=== PATIENT | female | born 1985 | race Caucasian/White ===

== ENCOUNTER 2018-06-25 14:48 | Emergency (ER) | payer OTHER, MEDICAID, SELFPAY ==
--- NOTE | 2018-06-25 14:58 | ED_ITS ---
HPI - Headache <TIARA Hollis - Last Filed: 06/25/18 22:31> General Chief Complaint: Headache Stated Complaint: MIGRAINE, STIFF NECK, NAUSEA, VOMITING, DIZZY Time Seen by Provider: 06/25/18 14:58 Source: patient Mode of arrival: ambulatory Limitations: no limitations History of Present Illness HPI Narrative: 32-year-old female here for complaint of having headache for the last 6 days. Blood headache is to bilateral temporal areas and into left eye and radiating into left neck. She denies any trauma to her head or neck. She states that the headache started while she was having an orgasm. Headache has not resolved at all. She reports worsening headache with activity. No fevers no chills. No nausea or vomiting. She is able to ambulate into the emergency room. She reports that the headache is help when she is relaxing. She denies any neuro deficits. MD Complaint: headache Onset (ago): day(s) Related Data Home Medications Medication Instructions Recorded Confirmed albuterol sulfate [Ventolin HFA] 2 puff INH Q6H PRN #0 10/09/17 escitalopram oxalate [Lexapro] 10 mg PO QDAY #0 10/09/17 Previous Rx's Medication Instructions Recorded cyclobenzaprine 10 mg PO Q8HP PRN #20 tab 10/09/17 prednisone 40 mg PO QDAY #8 tab 10/09/17 cyclobenzaprine 10 mg PO TID PRN #12 tab 06/25/18 Allergies Allergy/AdvReac Type Severity Reaction Status Date / Time amoxicillin [AMOXICILLIN] Allergy Unknown Unverified 03/09/18 12:48 Review of Systems <TIARA Hollis - Last Filed: 06/25/18 22:31> Constitutional Reports headache(s) Eyes Denies change in vision, Denies eye discharge, Denies irritation and Denies loss of vision ENT Ears, Nose, Mouth, and Throat: Reports headache(s) Cardiovascular Denies chest pain, Denies irregular heart rhythm, Denies lightheadedness, Denies palpitations, Denies dyspnea, Denies dyspnea on exertion and Denies orthopnea Respiratory Denies cough, Denies dyspnea, Denies dyspnea on exertion and Denies wheezing Gastrointestinal Gastrointestinal: Denies abdominal pain, Denies change in bowel habits, Denies diarrhea, Denies nausea and Denies vomiting Genitourinary Denies hematuria, Denies flank pain, Denies urinary incontinence and Denies urinary urgency Musculoskeletal Denies back pain, Denies muscle weakness, Denies numbness and Denies tingling Integumentary/Breasts Denies pruritus, Denies erythema, Denies rash and Denies wounds Neurologic Denies confusion, Reports headache(s), Denies loss of vision, Denies numbness and Denies tingling Psychiatric Denies anxiety, Denies confusion, Denies depression, Denies homicidal ideation and Denies suicidal ideation Endocrine Denies palpitations Hematologic/Lymphatic Denies easy bruising Allergic/Immunologic Denies wheezing Exam <TIARA Hollis - Last Filed: 06/25/18 22:31> Initial Vital Signs Initial Vital Signs: Vital Signs Temperature 98.1 F 06/25/18 15:05 Pulse Rate 81 06/25/18 15:05 Respiratory Rate 16 06/25/18 15:05 Blood Pressure 130/77 H 06/25/18 15:05 Pulse Oximetry 100 06/25/18 15:05 Const General: cooperative and well developed Nutritional Appearance: well nourished Orientation: alert, awake, oriented x3 and not confused HENMA Mouth: oral mucosae normal and moist mucous membranes Eyes Conjunctivae: conjunctivae normal Sclera: sclerae normal Pupils: PERRL EOM: EOM intact bilaterally and No nystagmus Neck Neck: normal visual inspection, full ROM, trachea midline, supple, No lymphadenopathy, No midline deformity and No JVD Lymphatic: No lymphedema Chest Chest: normal inspection of the chest Resp Effort & Inspection: normal respiratory effort, able to speak in complete sentences, no respiratory distress and no use of accessory muscles Auscultation: clear to auscultation bilaterally, no rales, no rhonchi and no wheezes Cardio Rate: regular rate Rhythm: regular rhythm Heart Sounds: no click, no gallops, no murmurs and no rubs Skin General: no rashes or lesions noted, No jaundice and No petechiae Neuro General: alert, awake, oriented x3, gait normal and no focal motor deficits Cranial Nerves: PERRL, EOM intact bilaterally, facial strength normal, tongue midline, able to rotate head bilaterally, able to elevate shoulders bilaterally and No nystagmus Cognition: normal cognition Speech: speech normal Gait: normal gait Motor: muscle tone normal throughout Sensory Exam: no sensory deficits noted <DO Reji Waters Last Filed: 06/26/18 07:30> Initial Vital Signs Initial Vital Signs: Vital Signs Temperature 98.1 F 06/25/18 15:05 Pulse Rate 81 06/25/18 15:05 Respiratory Rate 16 06/25/18 15:05 Blood Pressure 130/77 H 06/25/18 15:05 Pulse Oximetry 100 06/25/18 15:05 Course <TIARA Hollis - Last Filed: 06/25/18 22:31> Orders Ordered: ED Orders 06/25/18 15:47 CT angio head and neck Stat 06/25/18 16:00 Complete Blood Count AUTO DIFF Stat Comprehensive Metabolic Panel Stat Vital Signs - 8 hr 06/25/18 15:05 06/25/18 16:43 06/25/18 17:52 Temperature 98.1 F Pulse Rate 81 56 L 61 Respiratory Rate 16 16 16 Blood Pressure 130/77 H Blood Pressure [Left Arm] 125/78 H 131/70 H Pulse Oximetry 100 100 100 <DO Reji Waters Last Filed: 06/26/18 07:30> Orders Ordered: ED Orders 06/25/18 15:47 CT angio head and neck Stat 06/25/18 16:00 Complete Blood Count AUTO DIFF Stat Comprehensive Metabolic Panel Stat Vital Signs - 8 hr 06/25/18 15:05 06/25/18 16:43 06/25/18 17:52 Temperature 98.1 F Pulse Rate 81 56 L 61 Respiratory Rate 16 16 16 Blood Pressure 130/77 H Blood Pressure [Left Arm] 125/78 H 131/70 H Pulse Oximetry 100 100 100 MDM - Headache <TIARA Hollis - Last Filed: 06/25/18 22:31> Lab Data Result diagrams: 06/25/18 16:00 06/25/18 16:00 Lab Results 06/25/18 06/25/18 Range/Units 16:00 16:00 WBC 13.8 H (4.5-11.0) X10^3/uL RBC 4.91 (4.0-5.2) X10^6/uL Hgb 15.1 (12.0-16.0) g/dL Hct 42.7 (36-46) % MCV 86.9 (80-100) fL MCH 30.8 (26-34) PG MCHC 35.4 (30-36) % RDW 13.9 (11.6-14.8) % Plt Count 230 (150-400) X10^3/uL Neut % (Auto) 75.6 H (50-75) % Lymph % (Auto) 16.9 L (25-40) % [place] % (Auto) 5.1 (3-14) % Eos % (Auto) 1.8 L (2-4) % Baso % (Auto) 0.6 (0-2) % Neut # (Auto) 91781 H (1763-3487) /uL Sodium 141 (137-145) mmol/L Potassium 3.9 (3.4-5.1) mmol/L Chloride 105 (98-107) mmol/L Carbon Dioxide 24 (22-32) mmol/L BUN 12 (7-17) mg/dL Creatinine 0.60 (0.52-1.04) mg/dL Estimated GFR > 60.0 (>60) mL/min BUN/Creatinine Ratio 20.0 (6-22) Glucose 92 (70-100) mg/dL Calcium 9.1 (8.4-10.2) mg/dL Total Bilirubin 0.6 (0.2-1.3) mg/dL AST 20 (14-36) IU/L ALT 22 (9-52) IU/L Alkaline Phosphatase 53 (38-126) U/L Total Protein 7.3 (6.3-8.2) g/dL Albumin 4.5 (3.5-5.0) g/dL Globulin 2.8 (1.7-4.1) g/dL Albumin/Globulin Ratio 1.6 (1.0-2.8) Imaging Data CT scan - head: Radiologist's impression: PROCEDURE: CT ANGIO HEAD AND NECK INDICATIONS: headache and left neck pain x 1 week TECHNIQUE: Pre-contrast 4.5 mm thick sections acquired from the foramen magnum to the vertex. After the administration of intravenous contrast, 1 mm thick sections acquired from the aortic arch through the [place]. Post-contrast 4.5 mm thick sections then re- acquired from the foramen magnum to the vertex. 3-dimensional maximum-intensity- projection (MIP) and/or volume rendering reformats were acquired of the central intracranial vasculature and neck separately. COMPARISON: None. FINDINGS: Image quality: Excellent. BRAIN: CSF spaces: Ventricles are normal in size and shape. Basal cisterns are patent. No extra-axial fluid collections. Brain: No midline shift. No intracranial bleeds or masses. Schaffer-white matter interface appears intact. Skull and face: Calvarium and facial bones appear intact, without suspicious lesions. Orbits appear normal. Sinuses: Sinuses and mastoids are clear. HEAD CT ANGIOGRAPHY: Anterior circulation: Intracranial internal carotid arteries are normal in size and flow. The flow within the paired anterior cerebral arteries is normal and symmetric. The flow within the middle cerebral arteries is normal and symmetric. The anterior communicating artery is seen. No aneurysms are seen. Posterior circulation: Visualized portions of the vertebral arteries demonstrate normal caliber, and join to form a normal appearing basilar artery. Flow within the posterior cerebral arteries is normal and symmetric. No aneurysms are seen. NECK CT ANGIOGRAPHY: Carotid system: The great vessels demonstrate a conventional anatomy as they arise from the aortic arch. The origins of the common carotid arteries appear patent. The common carotid arteries demonstrate normal caliber and courses. The bifurcation regions are both widely patent. The internal carotid arteries demonstrate normal calibers and courses. Posterior circulation: The origins of the vertebral arteries both appear widely patent. The more superior extracranial portions of both vertebral arteries also demonstrate normal courses and calibers. They join to form a normal appearing basilar artery. Soft tissues: Visualized neck soft tissues demonstrate no suspicious abnormalities. Bones: No suspicious bony lesions. Visualized cervical spine appears normally aligned. IMPRESSION: 1. No acute intracranial findings. 2. No arterial stenosis, occlusion, or aneurysm of the head and neck. Any quantitative measurements of stenosis were performed using NASCET criteria. Dictated by: Meron Flores M.D. on 06/25/2018 at 16:56 Approved by: Meron Flores M.D. on 06/25/2018 at 17:00 [facility] Narrative Medical decision making narrative: CBC shows slightly elevated white count otherwise unremarkable. Chem panel was unremarkable. Healthy exam today patient with full range of motion of the neck. Vital signs are stable. CTA of head neck was obtained and was negative for any acute findings. According to up-to- date coital headache fits the symptoms that she has except that it has lasted for the last 6 days which is atypical for this type of headache. Differential of tension headache. Will treat for tension headache with cyclobenzaprine and [id number] Tylenol and Motrin. Follow up with primary care provider later this week for re-evaluation. For any worsening symptoms return to the emergency room. <Philippe Londono DO - Last Filed: 06/26/18 07:30> Lab Data Lab Results 06/25/18 06/25/18 Range/Units 16:00 16:00 WBC 13.8 H (4.5-11.0) X10^3/uL RBC 4.91 (4.0-5.2) X10^6/uL Hgb 15.1 (12.0-16.0) g/dL Hct 42.7 (36-46) % MCV 86.9 (80-100) fL MCH 30.8 (26-34) PG MCHC 35.4 (30-36) % RDW 13.9 (11.6-14.8) % Plt Count 230 (150-400) X10^3/uL Neut % (Auto) 75.6 H (50-75) % Lymph % (Auto) 16.9 L (25-40) % [place] % (Auto) 5.1 (3-14) % Eos % (Auto) 1.8 L (2-4) % Baso % (Auto) 0.6 (0-2) % Neut # (Auto) 45711 H (0182-7236) /uL Sodium 141 (137-145) mmol/L Potassium 3.9 (3.4-5.1) mmol/L Chloride 105 (98-107) mmol/L Carbon Dioxide 24 (22-32) mmol/L BUN 12 (7-17) mg/dL Creatinine 0.60 (0.52-1.04) mg/dL Estimated GFR > 60.0 (>60) mL/min BUN/Creatinine Ratio 20.0 (6-22) Glucose 92 (70-100) mg/dL Calcium 9.1 (8.4-10.2) mg/dL Total Bilirubin 0.6 (0.2-1.3) mg/dL AST 20 (14-36) IU/L ALT 22 (9-52) IU/L Alkaline Phosphatase 53 (38-126) U/L Total Protein 7.3 (6.3-8.2) g/dL Albumin 4.5 (3.5-5.0) g/dL Globulin 2.8 (1.7-4.1) g/dL Albumin/Globulin Ratio 1.6 (1.0-2.8) Discharge Plan Departure Patient Disposition: Home, Self-Care Clinical Impression: Headache Discharge Date/Time: 06/25/18 18:11 Interventions: ED Discharge Assessment Last Done: 06/25/18 18:10 Instructions: Tension Headache, DI for Headache Activity Restrictions/Additional Instructions: Laboratory work shows slightly elevated white count otherwise was normal. CT of the head and neck was obtained was negative for any acute findings. Will treat for tension headache with [id number] Tylenol and Motrin as needed for any discomfort. Cyclobenzaprine is prescribed to help with any muscle tension. Follow up with her primary care provider next week for re-evaluation. For any worsening symptoms return to the emergency room. Prescriptions: New cyclobenzaprine 10 mg tablet 10 mg PO TID PRN (Reason: muscle spasm) Qty: 12 RF: 0 No Action escitalopram oxalate [Lexapro] 10 MG tablet 10 mg PO QDAY Qty: 0 RF: 0 albuterol sulfate [Ventolin HFA] 90 MCG/PUFF HFA aerosol inhaler 2 puff INH Q6H PRNQty: 0 RF: 0 cyclobenzaprine 10 MG tablet 10 mg PO Q8HP PRNQty: 20 RF: 0 prednisone 20 MG tablet 40 mg PO QDAY Qty: 8 RF: 0 Referrals: Philippe Wu MD [Primary Care Provider] - <Philippe Londono DO - Last Filed: 06/26/18 07:30> Cosign ED Attending Reed Attestation: I was available for consultation during this patient's emergency department encounter
[2018-06-25 15:05] VITALS: BP 130/77; PULSE 81; RESP 16; TEMP 36.7; O2SAT 100
--- NOTE | 2018-06-25 15:47 | DI.CT.S_ITS ---
PROCEDURE: CT ANGIO HEAD AND NECK INDICATIONS: headache and left neck pain x 1 week TECHNIQUE: Pre-contrast 4.5 mm thick sections acquired from the foramen magnum to the vertex. After the administration of intravenous contrast, 1 mm thick sections acquired from the aortic arch through the [place]. Post-contrast 4.5 mm thick sections then re-acquired from the foramen magnum to the vertex. 3-dimensional hvgrkec-efygpqnzl-bnczutnuug (MIP) and/or volume rendering reformats were acquired of the central intracranial vasculature and neck separately. COMPARISON: None. FINDINGS: Image quality: Excellent. BRAIN: CSF spaces: Ventricles are normal in size and shape. Basal cisterns are patent. No extra-axial fluid collections. Brain: No midline shift. No intracranial bleeds or masses. Schaffer-white matter interface appears intact. Skull and face: Calvarium and facial bones appear intact, without suspicious lesions. Orbits appear normal. Sinuses: Sinuses and mastoids are clear. HEAD CT ANGIOGRAPHY: Anterior circulation: Intracranial internal carotid arteries are normal in size and flow. The flow within the paired anterior cerebral arteries is normal and symmetric. The flow within the middle cerebral arteries is normal and symmetric. The anterior communicating artery is seen. No aneurysms are seen. Posterior circulation: Visualized portions of the vertebral arteries demonstrate normal caliber, and join to form a normal appearing basilar artery. Flow within the posterior cerebral arteries is normal and symmetric. No aneurysms are seen. NECK CT ANGIOGRAPHY: Carotid system: The great vessels demonstrate a conventional anatomy as they arise from the aortic arch. The origins of the common carotid arteries appear patent. The common carotid arteries demonstrate normal caliber and courses. The bifurcation regions are both widely patent. The internal carotid arteries demonstrate normal calibers and courses. Posterior circulation: The origins of the vertebral arteries both appear widely patent. The more superior extracranial portions of both vertebral arteries also demonstrate normal courses and calibers. They join to form a normal appearing basilar artery. Soft tissues: Visualized neck soft tissues demonstrate no suspicious abnormalities. Bones: No suspicious bony lesions. Visualized cervical spine appears normally aligned. IMPRESSION: 1. No acute intracranial findings. 2. No arterial stenosis, occlusion, or aneurysm of the head and neck. Any quantitative measurements of stenosis were performed using NASCET criteria. Dictated by: Meron Flores M.D. on 06/25/2018 at 16:56 Approved by: Meron Flores M.D. on 06/25/2018 at 17:00
[2018-06-25 16:07] LABS: Add Manual Diff / Slide Review NO; Basophils Percent Auto 0.6 % (0-2); Eosinophils Percent Auto 1.8 % (2-4); Hematocrit 42.7 % (36-46); Hemoglobin 15.1 g/dL (12.0-16.0); Lymphocytes Percent Auto 16.9 % (25-40); Mean Corpuscular HGB Conc 35.4 % (30-36); Mean Corpuscular Hemoglobin 30.8 PG (26-34); Mean Corpuscular Volume 86.9 fL (80-100); Monocytes Percent Auto 5.1 % (3-14); Neutrophils Absolute Auto 10400 /uL (3000-5900); Neutrophils Percent Auto 75.6 % (50-75); Platelet Count 230 X10^3/uL (150-400); Red Blood Cell Count 4.91 X10^6/uL (4.0-5.2); Red Cell Distribution Width 13.9 % (11.6-14.8); White Blood Cell Count 13.8 X10^3/uL (4.5-11.0)
[2018-06-25 16:18] LABS: Alanine Aminotransferase 22 IU/L (9-52); Albumin 4.5 g/dL (3.5-5.0); Albumin Globulin Ratio 1.6 (1.0-2.8); Alkaline Phosphatase 53 U/L (38-126); Aspartate Aminotransferase 20 IU/L (14-36); Bilirubin Total 0.6 mg/dL (0.2-1.3); Blood Urea Nitrogen 12 mg/dL (7-17); Calcium 9.1 mg/dL (8.4-10.2); Carbon Dioxide 24 mmol/L (22-32); Chloride 105 mmol/L (98-107); Estimated Glomerular Filt Rate > 60.0 mL/min (>60); Globulin 2.8 g/dL (1.7-4.1); Glucose 92 mg/dL (70-100); HEMOLYSIS 17 (0-50); Potassium 3.9 mmol/L (3.4-5.1); Sodium 141 mmol/L (137-145); Total Protein 7.3 g/dL (6.3-8.2)
[2018-06-25 16:43] VITALS: BP 125/78; PULSE 56; RESP 16; O2SAT 100
[2018-06-25 17:52] VITALS: BP 131/70; PULSE 61; RESP 16; O2SAT 100
== END 2018-06-25 18:11 | disposition home or self-care (01) ==
PROVIDERS: Emergency Provider Nurse Practitioner Family; PCP Family Medicine
DX: R51 Headache (principal)
CPT/HCPCS: 36591; 70496; 70498; 80053; 81025; 85025; 99282; 99284; Q9967

== ENCOUNTER 2018-07-29 14:06 | Emergency (ER) | payer OTHER, MEDICAID, SELFPAY ==
[2018-07-29 14:49] VITALS: BP 130/76; PULSE 58; RESP 14; TEMP 36.5; O2SAT 99; BMI 41.1
--- NOTE | 2018-07-29 18:58 | ED.EXTPRO ---
HPI - Extremity Problem <KAYLEE Mehta - Last Filed: 07/29/18 23:04> General Chief complaint: Extremity Problem,Nontraumatic Stated complaint: LT FOOT PAIN Time Seen by Provider: 07/29/18 18:41 Source: patient Mode of arrival: ambulatory Limitations: no limitations History of Present Illness HPI Narrative: Patient presents of 3 weeks of left foot pain. She states the pain is in the center of her heel. She denies injury. She denies rash, skin abnormality, or any trauma or falls. She denies fever, chest pain, shortness of breath or any other concerns. She states she walks all the time for her job. She has a history of plantar fasciitis in the other foot. Related Data Home Medications Medication Instructions Recorded Confirmed albuterol sulfate [Ventolin HFA] 2 puff INH Q6H PRN #0 10/09/17 escitalopram oxalate [Lexapro] 10 mg PO QDAY #0 10/09/17 Previous Rx's Medication Instructions Recorded cyclobenzaprine 10 mg PO Q8HP PRN #20 tab 10/09/17 prednisone 40 mg PO QDAY #8 tab 10/09/17 cyclobenzaprine 10 mg PO TID PRN #12 tab 06/25/18 Allergies Allergy/AdvReac Type Severity Reaction Status Date / Time amoxicillin [AMOXICILLIN] Allergy Unknown Verified 07/29/18 14:52 Review of Systems <[facility] - Last Filed: 07/29/18 23:04> Review of Systems GENERAL: Denies chills, fatigue, malaise, fever, sweats. HEENT: Denies sinus pain, ear pain, sore throat, difficulty swallowing, dizziness. RESPIRATORY: Denies dyspnea, cough, wheezing, hemoptysis, sputum. CARDIOVASCULAR: Denies chest pain, palpitations, orthopnea, edema, GASTROINTESTINAL: Denies nausea, vomiting, abdominal pain, diarrhea, constipation, melena. : Denies dysuria, frequency, incontinence, hematuria, urinary retention. MUSCULOSKELETAL: See HPI SKIN: Denies rash, skin lesions, or other NEUROLOGIC: Denies weakness, headache, numbness, change in speech, confusion, seizures, incoordination. PSYCHIATRIC: No concerning psychosocial issues. 12 point review of systems is negative except for those stated above Exam <KAYLEE Mehta - Last Filed: 07/29/18 23:04> Narrative Exam Narrative: GENERAL: This is a well-nourished, well-developed patient, lying on stretcher HEAD: Atraumatic. Normocephalic. No temporal or scalp tenderness. EYES: Pupils equal round and reactive. Extraocular motions intact. No scleral icterus. No injection or drainage. ENT: Nose without bleeding, purulent drainage or septal hematoma. Throat without erythema, tonsillar hypertrophy or exudate. Uvula midline. Airway patent. NECK: Trachea midline. No JVD or lymphadenopathy. Supple, nontender, no meningeal signs. CARDIOVASCULAR: Regular rate and rhythm without murmurs, gallops, or rubs. RESPIRATORY: Clear to auscultation. Breath sounds equal bilaterally. No wheezes, rales, or rhonchi. GASTROINTESTINAL: Abdomen soft, non-tender, nondistended. No hepato-splenomegaly, or palpable masses. No guarding. EXTREMITIES: Pain to palpation of the center of left heel on the plantar side. Patient has full range of motion of the ankle and foot. Positive pedal pulses left foot. BACK: Nontender without deformity or crepitance. No flank tenderness. NEURO: AOx3. SKIN: No erythema, ecchymosis or skin abnormality of the left foot. Initial Vital Signs Initial Vital Signs: Vital Signs Temperature 97.7 F 07/29/18 14:49 Pulse Rate 58 L 07/29/18 14:49 Respiratory Rate 14 07/29/18 14:49 Blood Pressure 130/76 07/29/18 14:49 Pulse Oximetry 99 07/29/18 14:49 <Yael Jacobson DO - Last Filed: 07/31/18 14:52> Initial Vital Signs Initial Vital Signs: Vital Signs Temperature 97.7 F 07/29/18 14:49 Pulse Rate 58 L 07/29/18 14:49 Respiratory Rate 14 07/29/18 14:49 Blood Pressure 130/76 07/29/18 14:49 Pulse Oximetry 99 07/29/18 14:49 Course <COLTON Mehta-BC - Last Filed: 07/29/18 23:04> Orders Ordered: Discontinued Medications Ketorolac Tromethamine (Toradol) 60 mg IM NOW ONE Stop: 07/29/18 19:12 Last Admin: 07/29/18 19:22 Dose: 60 mg Vital Signs - 8 hr 07/29/18 19:49 Pulse Rate 74 Respiratory Rate 15 Blood Pressure 121/76 Pulse Oximetry 99 <Yael Jacobson DO - Last Filed: 07/31/18 14:52> Orders Ordered: Discontinued Medications Ketorolac Tromethamine (Toradol) 60 mg IM NOW ONE Stop: 07/29/18 19:12 Last Admin: 07/29/18 19:22 Dose: 60 mg Vital Signs - 8 hr 07/29/18 19:49 Pulse Rate 74 Respiratory Rate 15 Blood Pressure 121/76 Pulse Oximetry 99 MDM - Extremity (Nontraumatic) <COLTON Mehta-BC - Last Filed: 07/29/18 23:04> MDM Narrative Medical decision making narrative: Exam indicates plantar fasciitis of the left heel. Patient declines imaging as she had no trauma. She was given Toradol in the emergency department for pain. I gave her a few days off of work to rest her foot. She had no questions or concerns upon discharge. Patient ambulated steadily to check out. Discharge Plan Departure Patient Disposition: Home Clinical Impression: Plantar fasciitis Discharge Date/Time: 07/29/18 19:50 Interventions: ED Discharge Assessment Last Done: 07/29/18 19:49 Instructions: DI for Plantar Fasciitis, How To Perform RICE (Rest, Ice, Compress, Elevate) Activity Restrictions/Additional Instructions: I have given you instructions and dealing with plantar fasciitis. Please do not take ibuprofen for 68 hr after the Toradol injection. Please rest her foot, do passive stretching and use ice several times a day. I have given you a note to take a few days off of work so that you can rest her foot. Please follow-up with the primary care provider if worsening or no improvement. Prescriptions: No Action escitalopram oxalate [Lexapro] 10 MG tablet 10 mg PO QDAY Qty: 0 RF: 0 albuterol sulfate [Ventolin HFA] 90 MCG/PUFF HFA aerosol inhaler 2 puff INH Q6H PRNQty: 0 RF: 0 cyclobenzaprine 10 MG tablet 10 mg PO Q8HP PRNQty: 20 RF: 0 prednisone 20 MG tablet 40 mg PO QDAY Qty: 8 RF: 0 cyclobenzaprine 10 mg tablet 10 mg PO TID PRN (Reason: muscle spasm) Qty: 12 RF: 0 Referrals: Philippe uW MD [Primary Care Provider] - <Yael Jacobson DO - Last Filed: 07/31/18 14:52> Cosign ED Attending Cosmoature Attestation: I was immediately available in the department for consultation. Documentation has been reviewed. I agree with assessment and plan.
--- NOTE | 2018-07-29 19:03 | ED_ITS ---
HPI - Extremity Problem <KAYLEE Mehta - Last Filed: 07/29/18 23:04> General Chief complaint: Extremity Problem,Nontraumatic Stated complaint: LT FOOT PAIN Time Seen by Provider: 07/29/18 18:41 Source: patient Mode of arrival: ambulatory Limitations: no limitations History of Present Illness HPI Narrative: Patient presents of 3 weeks of left foot pain. She states the pain is in the center of her heel. She denies injury. She denies rash, skin abnormality, or any trauma or falls. She denies fever, chest pain, shortness of breath or any other concerns. She states she walks all the time for her job. She has a history of plantar fasciitis in the other foot. Related Data Home Medications Medication Instructions Recorded Confirmed albuterol sulfate [Ventolin HFA] 2 puff INH Q6H PRN #0 10/09/17 escitalopram oxalate [Lexapro] 10 mg PO QDAY #0 10/09/17 Previous Rx's Medication Instructions Recorded cyclobenzaprine 10 mg PO Q8HP PRN #20 tab 10/09/17 prednisone 40 mg PO QDAY #8 tab 10/09/17 cyclobenzaprine 10 mg PO TID PRN #12 tab 06/25/18 Allergies Allergy/AdvReac Type Severity Reaction Status Date / Time amoxicillin [AMOXICILLIN] Allergy Unknown Verified 07/29/18 14:52 Review of Systems <[facility] - Last Filed: 07/29/18 23:04> Review of Systems GENERAL: Denies chills, fatigue, malaise, fever, sweats. HEENT: Denies sinus pain, ear pain, sore throat, difficulty swallowing, dizziness. RESPIRATORY: Denies dyspnea, cough, wheezing, hemoptysis, sputum. CARDIOVASCULAR: Denies chest pain, palpitations, orthopnea, edema, GASTROINTESTINAL: Denies nausea, vomiting, abdominal pain, diarrhea, constipation, melena. : Denies dysuria, frequency, incontinence, hematuria, urinary retention. MUSCULOSKELETAL: See HPI SKIN: Denies rash, skin lesions, or other NEUROLOGIC: Denies weakness, headache, numbness, change in speech, confusion, seizures, incoordination. PSYCHIATRIC: No concerning psychosocial issues. 12 point review of systems is negative except for those stated above Exam <KAYLEE Mehta - Last Filed: 07/29/18 23:04> Narrative Exam Narrative: GENERAL: This is a well-nourished, well-developed patient, lying on stretcher HEAD: Atraumatic. Normocephalic. No temporal or scalp tenderness. EYES: Pupils equal round and reactive. Extraocular motions intact. No scleral icterus. No injection or drainage. ENT: Nose without bleeding, purulent drainage or septal hematoma. Throat without erythema, tonsillar hypertrophy or exudate. Uvula midline. Airway patent. NECK: Trachea midline. No JVD or lymphadenopathy. Supple, nontender, no meningeal signs. CARDIOVASCULAR: Regular rate and rhythm without murmurs, gallops, or rubs. RESPIRATORY: Clear to auscultation. Breath sounds equal bilaterally. No wheezes , rales, or rhonchi. GASTROINTESTINAL: Abdomen soft, non-tender, nondistended. No hepato-splenomegaly , or palpable masses. No guarding. EXTREMITIES: Pain to palpation of the center of left heel on the plantar side. Patient has full range of motion of the ankle and foot. Positive pedal pulses left foot. BACK: Nontender without deformity or crepitance. No flank tenderness. NEURO: AOx3. SKIN: No erythema, ecchymosis or skin abnormality of the left foot. Initial Vital Signs Initial Vital Signs: Vital Signs Temperature 97.7 F 07/29/18 14:49 Pulse Rate 58 L 07/29/18 14:49 Respiratory Rate 14 07/29/18 14:49 Blood Pressure 130/76 07/29/18 14:49 Pulse Oximetry 99 07/29/18 14:49 <Yael Jacobson DO - Last Filed: 07/31/18 14:52> Initial Vital Signs Initial Vital Signs: Vital Signs Temperature 97.7 F 07/29/18 14:49 Pulse Rate 58 L 07/29/18 14:49 Respiratory Rate 14 07/29/18 14:49 Blood Pressure 130/76 07/29/18 14:49 Pulse Oximetry 99 07/29/18 14:49 Course <COLTON Mehta-BC - Last Filed: 07/29/18 23:04> Orders Ordered: Discontinued Medications Ketorolac Tromethamine (Toradol) 60 mg IM NOW ONE Stop: 07/29/18 19:12 Last Admin: 07/29/18 19:22 Dose: 60 mg Vital Signs - 8 hr 07/29/18 19:49 Pulse Rate 74 Respiratory Rate 15 Blood Pressure 121/76 Pulse Oximetry 99 <Yael Jacobson DO - Last Filed: 07/31/18 14:52> Orders Ordered: Discontinued Medications Ketorolac Tromethamine (Toradol) 60 mg IM NOW ONE Stop: 07/29/18 19:12 Last Admin: 07/29/18 19:22 Dose: 60 mg Vital Signs - 8 hr 07/29/18 19:49 Pulse Rate 74 Respiratory Rate 15 Blood Pressure 121/76 Pulse Oximetry 99 MDM - Extremity (Nontraumatic) <COLTON Mehta-BC - Last Filed: 07/29/18 23:04> MDM Narrative Medical decision making narrative: Exam indicates plantar fasciitis of the left heel. Patient declines imaging as she had no trauma. She was given Toradol in the emergency department for pain. I gave her a few days off of work to rest her foot. She had no questions or concerns upon discharge. Patient ambulated steadily to check out. Discharge Plan Departure Patient Disposition: Home Clinical Impression: Plantar fasciitis Discharge Date/Time: 07/29/18 19:50 Interventions: ED Discharge Assessment Last Done: 07/29/18 19:49 Instructions: DI for Plantar Fasciitis, How To Perform RICE (Rest, Ice, Compress, Elevate) Activity Restrictions/Additional Instructions: I have given you instructions and dealing with plantar fasciitis. Please do not take ibuprofen for 68 hr after the Toradol injection. Please rest her foot , do passive stretching and use ice several times a day. I have given you a note to take a few days off of work so that you can rest her foot. Please follow-up with the primary care provider if worsening or no improvement. Prescriptions: No Action escitalopram oxalate [Lexapro] 10 MG tablet 10 mg PO QDAY Qty: 0 RF: 0 albuterol sulfate [Ventolin HFA] 90 MCG/PUFF HFA aerosol inhaler 2 puff INH Q6H PRNQty: 0 RF: 0 cyclobenzaprine 10 MG tablet 10 mg PO Q8HP PRNQty: 20 RF: 0 prednisone 20 MG tablet 40 mg PO QDAY Qty: 8 RF: 0 cyclobenzaprine 10 mg tablet 10 mg PO TID PRN (Reason: muscle spasm) Qty: 12 RF: 0 Referrals: Philippe Wu MD [Primary Care Provider] - <Yael Jacobson DO - Last Filed: 07/31/18 14:52> Cosign ED Attending Cosmoature Attestation: I was immediately available in the department for consultation. Documentation has been reviewed. I agree with assessment and plan.
[2018-07-29] MEDS: KETOROLAC 60 MG/2 ML VIAL IM (19:22)
[2018-07-29 19:49] VITALS: BP 121/76; PULSE 74; RESP 15; O2SAT 99
== END 2018-07-29 19:50 | disposition home or self-care (01) ==
PROVIDERS: Emergency Provider Nurse Practitioner Family; PCP Family Medicine
DX: M72.2 Plantar fascial fibromatosis (principal)
CPT/HCPCS: 96372; 99282; 99283; J1885

== ENCOUNTER 2019-08-07 08:13 | Emergency (ER) | payer OTHER, MEDICAID, SELFPAY ==
[2019-08-07 08:24] VITALS: BP 114/63; PULSE 72; RESP 13; TEMP 36.4; O2SAT 97
--- NOTE | 2019-08-07 08:48 | ED.SKABFB ---
HPI - Skin/Abscess/Foreign Bdy General Chief complaint: Skin/Abscess/Foreign Body Stated complaint: welt and rash on right outer breast area today Time Seen by Provider: 08/07/19 08:40 Source: patient Mode of arrival: ambulatory Limitations: no limitations History of Present Illness HPI narrative: Patient is a 34-year-old female who presents with right breast lesion. She states that she she noticed a lesion on her right breast this morning. She says it is slightly tender to touch it is erythematous. She says it was not there yesterday. She is extremely sensitive skin she has not put any new lotions soap or deodorants anywhere. She has a fairly new bra was not rubbing. MD complaint: rash Onset (ago): hour(s) Severity: mild Related Data Home Medications Medication Instructions Recorded Confirmed albuterol sulfate [Ventolin HFA] 2 puff INH Q6H PRN #0 10/09/17 escitalopram oxalate [Lexapro] 10 mg PO QDAY #0 10/09/17 Previous Rx's Medication Instructions Recorded cyclobenzaprine 10 mg PO Q8HP PRN #20 tab 10/09/17 prednisone 40 mg PO QDAY #8 tab 10/09/17 cyclobenzaprine 10 mg PO TID PRN #12 tab 06/25/18 Allergies Allergy/AdvReac Type Severity Reaction Status Date / Time amoxicillin [AMOXICILLIN] Allergy Unknown Verified 07/29/18 14:52 Review of Systems Review of Systems Narrative: GENERAL: Denies chills,fever HEENT: Denies throat pain RESPIRATORY: Denies dyspnea, cough, wheezing CARDIOVASCULAR: Denies chest pain, palpitations GASTROINTESTINAL: Denies nausea, vomiting MUSCULOSKELETAL: Denies extremity pain, injury SKIN: See HPI NEUROLOGIC: Denies weakness, dizziness, headache, numbness 8 point review of systems is negative except for those stated above and HPI PFSH Medical History Patient denies medical problems (Acute) Surgical History History of cholecystectomy (Acute) Social History Smoking Status: Current every day smoker Social History Smoking Status: Current every day smoker Exam Initial Vital Signs Initial Vital Signs: Vital Signs Temperature 97.6 F 08/07/19 08:24 Pulse Rate 72 08/07/19 08:24 Respiratory Rate 13 08/07/19 08:24 Blood Pressure 114/63 08/07/19 08:24 Pulse Oximetry 97 08/07/19 08:24 GENERAL: Well-appearing, well-nourished and in no acute distress. CARDIOVASCULAR: peripheral pulses in tact, cap refill <2 sec RESPIRATORY: No respiratory distress, speaks in full sentences without difficulty EXTREMITIES: Normal range of motion, no clubbing or edema. Neurovascularly intact NEUROLOGICAL: Cranial nerves II through XII grossly intact. Normal gait and speech. SKIN: Right lateral breast 5.5 L by 5 cm erythematous lesion no fluctuation no drainage. No streaking minimally tender to touch Course Vital Signs Vital signs: Vital Signs - 8 hr 08/07/19 08:24 Temperature 97.6 F Pulse Rate 72 Respiratory Rate 13 Blood Pressure 114/63 Pulse Oximetry 97 Discharge Plan Departure Patient Disposition: Home Clinical Impression: Patient denies medical problems Cellulitis Qualifiers: Site of cellulitis: unspecified site Qualified Code(s): L03.90 - Cellulitis, unspecified Discharge Date/Time: 08/07/19 09:21 Instructions: DI for Cellulitis -- Adult Activity Restrictions/Additional Instructions: *You have been diagnosed with possible infection of skin *What to do: At this time monitor difficult to tell exactly what this is after only being here for just a few hours. *Continue to take medications as directed Antibiotic ointment twice daily for the next 1 week *Follow up with your primary care provider in 2-3 days *Return to ER if you should have increasing redness, drainage, worsening pain or any new, worsening or concerning symptoms Prescriptions: No Action escitalopram oxalate [Lexapro] 10 MG tablet 10 mg PO QDAY Qty: 0 RF: 0 albuterol sulfate [Ventolin HFA] 90 MCG/PUFF HFA aerosol inhaler 2 puff INH Q6H PRNQty: 0 RF: 0 cyclobenzaprine 10 MG tablet 10 mg PO Q8HP PRNQty: 20 RF: 0 prednisone 20 MG tablet 40 mg PO QDAY Qty: 8 RF: 0 cyclobenzaprine 10 mg tablet 10 mg PO TID PRN (Reason: muscle spasm) Qty: 12 RF: 0 Referrals: Litzy Prakash ARNP [Primary Care Provider] -
== END 2019-08-07 09:21 | disposition home or self-care (01) ==
PROVIDERS: Emergency Provider Emergency Medicine; PCP Nurse Practitioner
DX: N61.0 Mastitis without abscess (principal)
CPT/HCPCS: 99282

== ENCOUNTER → 2019-08-25 10:03 | Outpatient (CLI) | payer OTHER, MEDICAID, SELFPAY ==
[2019-08-25 10:40] LABS: Add Manual Diff / Slide Review NO; Basophils Absolute Auto 0 /uL (0-100); Basophils Percent Auto 0.4 % (0-2); Eosinophils Absolute Auto 100 /uL (0-450); Eosinophils Percent Auto 1.6 % (2-4); Hematocrit 42.3 % (36-46); Hemoglobin 14.5 g/dL (12.0-16.0); Lymphocytes Absolute Auto 1500 /uL (1100-4500); Lymphocytes Percent Auto 18.9 % (25-40); Mean Corpuscular HGB Conc 34.3 % (30-36); Mean Corpuscular Hemoglobin 30.4 PG (26-34); Mean Corpuscular Volume 88.6 fL (80-100); Monocytes Absolute Auto 500 /uL (0-900); Monocytes Percent Auto 6.1 % (3-14); Neutrophils Absolute Auto 5600 /uL (1500-7000); Platelet Count 196 X10^3/uL (150-400); Red Blood Cell Count 4.78 X10^6/uL (4.0-5.2); Red Cell Distribution Width 13.8 % (11.6-14.8); White Blood Cell Count 7.7 X10^3/uL (4.5-11.0)
[2019-08-25 10:51] LABS: Alanine Aminotransferase 13 IU/L (9-52); Albumin 4.1 g/dL (3.5-5.0); Albumin Globulin Ratio 1.6 (1.0-2.8); Alkaline Phosphatase 45 U/L (38-126); Aspartate Aminotransferase 19 IU/L (14-36); BUN Creatinine Ratio 16.7 (6-22); Bilirubin Total 0.7 mg/dL (0.2-1.3); Blood Urea Nitrogen 10 mg/dL (7-17); Calcium 9.1 mg/dL (8.4-10.2); Carbon Dioxide 29 mmol/L (22-32); Chloride 105 mmol/L (98-107); Cholesterol 137 mg/dL (140-199); Estimated Glomerular Filt Rate > 60.0 mL/min (>60); Globulin 2.5 g/dL (1.7-4.1); Glucose 94 mg/dL (70-100); HDL Cholesterol 49 mg/dL (40-60); HEMOLYSIS < 15 (0-50); LDL Cholesterol Calculated 82 mg/dL (<100); Potassium 4.5 mmol/L (3.4-5.1); Sodium 140 mmol/L (137-145); Total Protein 6.6 g/dL (6.3-8.2); Triglycerides 31 mg/dL (35-150)
[2019-08-25 12:01] LABS: TSH w/ Reflex to FT4 0.35 uIU/mL (0.47-4.68)
[2019-08-25 14:30] LABS: Free T4, Direct Thyroxine 1.03 ng/dL (0.78-2.19)
== END ==
PROVIDERS: PCP Nurse Practitioner; Visit Provider Nurse Practitioner
DX: Z00.00 Encounter for general adult medical examination without abnormal findings (principal); D72.829 Elevated white blood cell count, unspecified; R63.4 Abnormal weight loss
CPT/HCPCS: 36415; 80053; 80061; 84439; 84443; 85025

== ENCOUNTER → 2019-09-13 12:31 | Outpatient (CLI) | payer OTHER, MEDICAID, SELFPAY ==
[2019-09-13 17:19] LABS: Follicle Stimulating Hormone 4.88 mIU/mL; Progesterone, Total 1.74 ng/mL
[2019-09-19 04:05] LABS: Testosterone Total 37 ng/dL (2-45)
[2019-09-23 16:46] LABS: Estrogen 270.1 pg/mL
== END ==
PROVIDERS: PCP Nurse Practitioner; Visit Provider Nurse Practitioner
DX: R23.2 Flushing (principal)
CPT/HCPCS: 36415; 82672; 83001; 84144; 84402; 84403

== ENCOUNTER → 2019-09-25 13:15 | Outpatient (CLI) | payer OTHER, MEDICAID, SELFPAY ==
--- NOTE | 2019-09-25 13:16 | DI.US.S_ITS ---
PROCEDURE: US PELVIC COMPLETE INDICATIONS: PELVIC PAIN WITH BIMANUAL EXAM BILATERALLY TECHNIQUE: Real-time scanning was performed of the pelvic organs, with image documentation. Additional endovaginal scanning was necessary due to incomplete visualization of the adnexal and endometrial structures by transabdominal scanning. COMPARISON: None. FINDINGS: Transabdominal scanning: A mild amount of free pelvic fluid is seen, which is considered to be within physiologic limits. Limited scanning through the kidneys shows no hydronephrosis. Within Small's pouch, apparent shadowing can be seen. Endovaginal scanning: Uterus: Uterus is normal in size at 8.7 x 4.2 x 5 cm. The endometrial stripe is not well seen. An IUD is seen at its expected location. Ovaries: The right ovary measures 3.2 x 1.7 x 2.4 cm and demonstrates an irregular cystic structure that measures up to 2.1 cm with 2 internal septations. The left ovary measures 3.1 x 1.7 x 2 cm and demonstrates an unremarkable sonographic appearance. No adnexal masses are seen. IMPRESSION: There is a complex right ovarian cyst seen that measures up to 2.1 cm. At clinical discretion, a followup pelvic ultrasound is suggested in 6 weeks to assure resolution/ improvement. Within Morison's pouch, there is apparent shadowing seen. Differential diagnosis includes air or calcification. Please correlate with known patient history. Dictated by: Edu Price M.D. on 09/25/2019 at 17:28 Approved by: Edu Price M.D. on 09/25/2019 at 17:32
== END ==
PROVIDERS: PCP Nurse Practitioner; Visit Provider Nurse Practitioner
DX: R10.2 Pelvic and perineal pain (principal); N83.291 Other ovarian cyst, right side; Z97.5 Presence of (intrauterine) contraceptive device
CPT/HCPCS: 76830; 76856

== ENCOUNTER → 2019-11-17 15:11 | Outpatient (CLI) | payer OTHER, MEDICAID, SELFPAY ==
--- NOTE | 2019-11-17 15:12 | DI.US.S_ITS ---
PROCEDURE: US PELVIC COMPLETE INDICATIONS: PELVIC PAIN, ABN PELVIC US, OVARIAN CYST TECHNIQUE: Real-time scanning was performed of the pelvic organs, with image documentation. Additional endovaginal scanning was necessary due to incomplete visualization of the adnexal and endometrial structures by transabdominal scanning. COMPARISON: [facility], CT, CT ANGIO HEAD AND NECK, 06/25/2018, 16:10. [facility], US, US PELVIC COMPLETE, 09/25/2019, 14:03. FINDINGS: Transabdominal scanning: Limited scanning through the kidneys shows no hydronephrosis. Shadowing again seen along the superior edge of the right kidney and liver interface which may be related to calcifications. If indicated, CT could be performed. No pathologic free abdominal or pelvic fluid. Endovaginal scanning: Uterus: Uterus is normal in size at 10.1 x 2.9 x 5.0 cm. The endometrium measures 2.2 mm in combined thickness. Intrauterine device in expected position. Ovaries: Simple unilocular right ovarian cyst measuring 3.3 cm; otherwise the ovaries are normal bilaterally. Previously visualized complex right ovarian cyst has resolved. IMPRESSION: 1. Simple unilocular right ovarian cyst the previously seen complex cyst that resolved. 2. Presumed calcification along the superior margin of the right kidney redemonstrated. If indicated, CT KUB could be performed. Dictated by: Colby KRAMER Interpreted: Kaleigh Solorzano MD on 11/17/2019 at 16:53 Approved by: Kaleigh Solorzano M.D. on 11/17/2019 at 18:00
== END ==
PROVIDERS: PCP Nurse Practitioner; Visit Provider Nurse Practitioner
DX: N83.291 Other ovarian cyst, right side (principal); R10.2 Pelvic and perineal pain; Z97.5 Presence of (intrauterine) contraceptive device
CPT/HCPCS: 76830; 76856

== ENCOUNTER → 2019-11-30 14:36 | Outpatient (CLI) | payer OTHER, MEDICAID, SELFPAY ==
--- NOTE | 2019-11-30 14:39 | DI.CT.S_ITS ---
PROCEDURE: CT KIDNEY URETER BLADDER (KUB) INDICATIONS: abd/flank tenderness TECHNIQUE: Noncontrast 5 mm thick sections acquired from the diaphragms to the symphysis. 5 mm thick coronal and sagittal reformats were then performed. For radiation dose reduction, the following was used: automated exposure control, adjustment of mA and/or kV according to patient size. COMPARISON: None. FINDINGS: Image quality: Excellent. Lung bases: Lung bases are clear. Heart size is normal. Urinary system: Both kidneys are normal in size. No kidney stones. No hydronephrosis or perinephric fat stranding. Both ureters appear non-dilated throughout their expected courses. Bladder wall thickness is normal; no calcified bladder stones. Other solid organs: Liver is normal in size. Tiny posterior segment punctate calcifications presumably from prior granulomatous disease Gallbladder surgically absent. Pancreas is normal in contours. Spleen is normal in size. No adrenal nodules. Peritoneum and bowel: Unenhanced bowel loops demonstrate normal wall thickness and caliber. No free fluid or air. Normal appendix Nodes and vessels: No retroperitoneal or mesenteric adenopathy by size criteria. Aorta and inferior vena cava are normal in caliber. Abdominal wall: No ventral hernias. Pelvis: No free pelvic fluid. No inguinal hernias or adenopathy. Incidentally noted IUD. Bones: No suspicious bony lesions. No vertebral body compression fractures. IMPRESSION: No urolithiasis. No evidence of urinary obstruction No acute process. Normal appendix. Dictated by: Bill Nagel M.D. on 11/30/2019 at 15:01 Approved by: Bill Nagel M.D. on 11/30/2019 at 15:05
== END ==
PROVIDERS: PCP Nurse Practitioner; Visit Provider Nurse Practitioner
DX: R10.9 Unspecified abdominal pain (principal); N28.89 Other specified disorders of kidney and ureter
CPT/HCPCS: 74176

== ENCOUNTER → 2019-12-27 15:58 | Outpatient (CLI) | payer OTHER, MEDICAID, SELFPAY ==
[2019-12-27 17:34] LABS: Follicle Stimulating Hormone 9.44 mIU/mL
[2019-12-27 17:48] LABS: TSH w/ Reflex to FT4 1.79 uIU/mL (0.47-4.68)
== END ==
PROVIDERS: PCP Nurse Practitioner; Visit Provider Obstetrics & Gynecology
DX: R23.2 Flushing (principal)
CPT/HCPCS: 36415; 83001; 84443

== ENCOUNTER 2020-08-23 11:07 | Emergency (ER) | payer OTHER, MEDICAID, SELFPAY ==
[2020-08-23 11:16] VITALS: BP 139/74; PULSE 86; RESP 15; TEMP 36.7; O2SAT 97; BMI 32.2
--- NOTE | 2020-08-23 11:31 | DI.RAD.S_ITS ---
PROCEDURE: XR CHEST 2V INDICATIONS: sob, asthma, loss taste and smell TECHNIQUE: 2 views of the chest were acquired. COMPARISON: None. FINDINGS: Surgical changes and devices: None. Lungs and pleura: Lungs are clear. No pleural effusions or pneumothorax. Mediastinum: Mediastinal contours are normal. Heart size is normal. Bones and chest wall: No suspicious bony abnormalities. Soft tissues appear unremarkable. IMPRESSION: No acute cardiopulmonary abnormalities or focal airspace disease. Dictated by: Valente Ureña M.D. on 08/23/2020 at 12:36 Approved by: Valente Ureña M.D. on 08/23/2020 at 12:36
--- NOTE | 2020-08-23 11:45 | ED.URI ---
HPI - URI/Sore Throat <KAYLEE MehtaBC - Last Filed: 08/23/20 14:38> General Chief Complaint: Upper Respiratory Symptoms Stated Complaint: LOSS OF TASTE AND SMELL Time Seen by Provider: 08/23/20 11:11 Source: patient Mode of arrival: Ambulatory Limitations: no limitations History of Present Illness HPI Narrative: The patient is a 35-year-old female current smoker with history of asthma who presents with a chief complaint of loss of taste and smell. She states that this happened several days ago, she is not exactly sure when. She denies any fevers nausea vomiting or diarrhea. She denies any abnormal shortness of breath or chest pain, though does note that she has a significant history of asthma. 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 No abnormal flanks or chills. She does have a cough that developed over the past few days, though notes that it could be related to being exposed to a cat that she is allergic to. Related Data Home Medications Medication Instructions Recorded Confirmed levonorgestrel 20 mcg/24 hours (5 INTRAUTERINE 12/27/19 04/26/20 yrs) 52 mg intrauterine device multivitamin 1 cap PO DAILY 12/27/19 04/26/20 vitamin B complex PO 12/27/19 04/26/20 Previous Rx's Medication Instructions Recorded albuterol sulfate 90 mcg/actuation 1 puff INHALATION Q4-6H PRN #18 10/12/19 aerosol inhaler gram cyclobenzaprine 10 mg tablet 10 mg PO BEDTIME #30 tab 08/13/20 Allergies Allergy/AdvReac Type Severity Reaction Status Date / Time amoxicillin [AMOXICILLIN] Allergy Unknown Verified 08/23/20 11:16 Review of Systems <TREVOR Mehta - Last Filed: 08/23/20 14:38> Review of Systems Narrative: GENERAL: Denies chills, fatigue, malaise, fever, sweats. HEENT: Denies sinus pain, ear pain, sore throat, difficulty swallowing, dizziness. RESPIRATORY: See HPI CARDIOVASCULAR: Denies chest pain, palpitations, orthopnea, edema, GASTROINTESTINAL: Denies nausea, vomiting, abdominal pain, diarrhea, constipation, melena. : Denies dysuria, frequency, incontinence, hematuria, urinary retention. MUSCULOSKELETAL: denies weakness, joint pain, or bony pain SKIN: Denies rash, skin lesions, or other NEUROLOGIC: Denies weakness, headache, numbness, change in speech, confusion, seizures, incoordination. PSYCHIATRIC: No concerning psychosocial issues. 12 point review of systems is negative except for those stated above Patient History <TREVOR Mehta - Last Filed: 08/23/20 14:38> Medical History Abnormal Pap smear of cervix (Acute ~2004) Acne (Chronic) ADHD (Chronic) Allergies (Chronic) Anemia (Chronic) Ankle pain (Chronic) Anxiety (Chronic) Asthma (Chronic) Carpal tunnel syndrome (Chronic) Chronic back pain (Chronic) Depression (Chronic) Family history of breast cancer (Acute) Family history of diabetes mellitus (Acute) Family history of heart disease (Acute) Family history of hemochromatosis (Acute) Family history of high cholesterol (Acute) Family history of hypertension (Acute) Family history of lung cancer (Acute) Family history of psychiatric condition (Acute) Foot pain (Acute) Heavy menstrual period (Chronic ~1996) History of acne (Acute) History of anxiety (Acute) History of chronic back pain (Acute) History of depression (Acute) History of OCD (obsessive compulsive disorder) (Acute) History of seasonal allergies (Acute) Hot flashes (Acute) Irregular menses (Acute) Migraines (Chronic) Obesity (BMI 30.0-34.9) (Acute) OCD (obsessive compulsive disorder) (Chronic) Ovarian cyst (Chronic) Painful menstrual periods (Chronic ~1996) Patient denies medical problems (Acute) Perimenopause (Acute) Post traumatic stress disorder (PTSD) (Chronic) Skin rash (Chronic) Tobacco abuse (Acute) Surgical History Anesthesia (Resolved) History of cholecystectomy (Acute ~07/29/10) Family History Father Diabetes mellitus Hypertension Hyperlipidemia Mother Mental health problem Hemochromatosis Grandfather Diabetes mellitus History of heart disease OCD (obsessive compulsive disorder) Grandmother Cancer Mental health problem Grandfather History of heart disease Hypertension Hyperlipidemia Grandmother Cancer Family/Other Mental health problem Social History Smoking Status: Current every day smoker Smoking Status: Current every day smoker alcohol intake frequency: 0-2 drinks per day Substance Use Type: marijuana Exam <TREVOR Mehta - Last Filed: 08/23/20 14:38> Narrative Exam Narrative: GENERAL: This is a well-nourished, well-developed patient, in no acute distress HEAD: Atraumatic. Normocephalic. No temporal or scalp tenderness. EYES: Pupils equal round and reactive. Extraocular motions intact. No scleral icterus. No injection or drainage. ENT: Nose without bleeding, purulent drainage or septal hematoma. Wearing a mask. No erythema noted posterior pharynx. Uvula midline. Airway patent. NECK: Trachea midline. No JVD or lymphadenopathy. Supple, nontender, no meningeal signs. CARDIOVASCULAR: Regular rate and rhythm RESPIRATORY: Clear to auscultation. Breath sounds equal bilaterally. No wheezes, rales, or rhonchi. No cough. No increased respiratory effort. No accessory muscle use. GASTROINTESTINAL: Abdomen soft, non-tender, nondistended. No hepato-splenomegaly, or palpable masses. No guarding. EXTREMITIES: No clubbing, cyanosis, or edema. No joint tenderness, effusion, or edema noted. BACK: Nontender without deformity or crepitance. No flank tenderness. NEURO: AOx3. SKIN: No rash or erythema on visible skin Initial Vital Signs Initial Vital Signs: Vital Signs Temperature 98.0 F 08/23/20 11:16 Pulse Rate 86 08/23/20 11:16 Respiratory Rate 15 08/23/20 11:16 Blood Pressure 139/74 08/23/20 11:16 Pulse Oximetry 97 08/23/20 11:16 <Ashley Casper MD - Last Filed: 08/23/20 17:44> Initial Vital Signs Initial Vital Signs: Vital Signs Temperature 98.0 F 08/23/20 11:16 Pulse Rate 86 08/23/20 11:16 Respiratory Rate 15 08/23/20 11:16 Blood Pressure 139/74 08/23/20 11:16 Pulse Oximetry 97 08/23/20 11:16 Scores <TREVOR Mehta - Last Filed: 08/23/20 14:38> GCS Chapo coma scale eye opening: Spontaneous [place] coma scale verbal response: Orientated [place] coma scale motor response: Obey commands [place] coma scale total score: 15 Course <TREVOR Mehta - Last Filed: 08/23/20 14:38> Orders Ordered: ED Orders 08/23/20 11:30 COVID19 -ED/INPAT/OR/L&D Routine COVID19 -ED/INPAT/OR/L&D Stat 08/23/20 11:31 XR chest 2V Stat Consultations Consultation #1: Patient's preliminary coronavirus swab returns positive. Second swab being done to confirm for laboratory instructions. Time: 12:02 Vital Signs Vital signs: Vital Signs - 8 hr 08/23/20 11:16 Temperature 98.0 F Pulse Rate 86 Respiratory Rate 15 Blood Pressure 139/74 Pulse Oximetry 97 <Ashley Casper MD - Last Filed: 08/23/20 17:44> Orders Ordered: ED Orders 08/23/20 11:30 COVID19 -ED/INPAT/OR/L&D Routine COVID19 -ED/INPAT/OR/L&D Stat 08/23/20 11:31 XR chest 2V Stat Vital Signs Vital signs: Vital Signs - 8 hr 08/23/20 11:16 Temperature 98.0 F Pulse Rate 86 Respiratory Rate 15 Blood Pressure 139/74 Pulse Oximetry 97 MDM - URI/Sore Throat <TREVOR Mehta - Last Filed: 08/23/20 14:38> Lab Data Labs: Lab Results 08/23/20 08/23/20 Range/Units 11:30 11:30 COVID-19 PCR Positive H Positive H (Negative) Imaging Data Chest x-ray: Radiologist's Impression: [address] [place] [id number] XRay Report Signed Patient: Jillian Richey [facility]#: [id number] : 1985Acct:[id number] Age/Sex: 35 / FDate of Service: 08/23/20 Loc: ED Accession Number: [id number] Procedure: XR chest 2V Ordering Provider: Jessica Diego PROCEDURE: XR CHEST 2V INDICATIONS: sob, asthma, loss taste and smell TECHNIQUE: 2 views of the chest were acquired. COMPARISON: None. FINDINGS: Surgical changes and devices: None. Lungs and pleura: Lungs are clear. No pleural effusions or pneumothorax. Mediastinum: Mediastinal contours are normal. Heart size is normal. Bones and chest wall: No suspicious bony abnormalities. Soft tissues appear unremarkable. IMPRESSION: No acute cardiopulmonary abnormalities or focal airspace disease. Dictated by: Valente Ureña M.D. on 08/23/2020 at 12:36 Approved by: Valente Ureña M.D. on 08/23/2020 at 12:36 [facility] Narrative Medical decision making narrative: The patient is a 35-year-old female who presents with a chief complaint of loss of taste and smell for unknown number of days. She requests a coronavirus test. She does not appear acutely ill, appears well hydrated, is in no respiratory distress speaking full sentences. She initially test positive for coronavirus, 2nd swab done per laboratory instructions which also results positive. I discussed at length self isolation, provided work notes, discussed resources including primary care provider, health community resource consultant, respiratory clinic. Discussed at length coming back to the emergency department for acute shortness of breath or any acute concerns. Discussed self quarantine, washing hands, covering cough wearing mass concerning home. The patient has no questions or concerns upon discharge and states understanding return precautions as well as follow-up care. <Ashley Casper MD - Last Filed: 08/23/20 17:44> Lab Data Labs: Lab Results 08/23/20 08/23/20 Range/Units 11:30 11:30 COVID-19 PCR Positive H Positive H (Negative) Discharge Plan Departure Patient Disposition: Home Clinical Impression: 2019 novel coronavirus disease (COVID-19) Discharge Date/Time: 08/23/20 14:26 Instructions: DI for COVID-19 (Suspected or Confirmed ), Coronavirus Disease 2019, Can COVID-19 be prevented? Activity Restrictions/Additional Instructions: Thank you for trusting us with your care today. As discussed, you tested positive for coronavirus. Please stay home rest. Please self isolate, wash your hands and cover your sneezes. Please come back to the emergency department for any acute concerns such as significant shortness of breath etcetera if you do come back to the emergency department please give us a call first at [phone] so that we can prepare to take excellent care of you. Please follow-up with the [facility] community resource consultant. They can help you find a primary care provider if you need one. Under the resource for you is the respiratory clinic, which focuses on care for coronavirus and suspected coronavirus patients. Please use [id number] medications as needed and able. Please rest and push fluids. Prescriptions: No Action cyclobenzaprine 10 mg tablet 10 mg PO BEDTIME Qty: 30 RF: 0 albuterol sulfate [Proventil HFA] 90 mcg/actuation HFA aerosol inhaler 1 puff INHALATION Q4-6H PRN (Reason: shortness of breath or wheezing) Qty: 18 RF: 0 Mirena 20 mcg/24 hours (5 yrs) 52 mg intrauterine device intrauterine RF: 0 vitamin B complex PO RF: 0 multivitamin Capsule 1 cap PO DAILY RF: 0 Referrals: Litzy Prakash ARNP [Primary Care Provider] - Stand Alone Forms: Work Release Note <Ashley Casper MD - Last Filed: 08/23/20 17:44> Cosign ED Attending Cosignature Attestation: I was immediately available in the department for consultation throughout this patient's visit. I agree with documentation as above. Ashley Casper MD
[2020-08-23 13:07] LABS: COVID19 -Nasal RAPID POSITIVE (Negative)
[2020-08-23 15:18] LABS: COVID19 -Nasal RAPID POSITIVE (Negative)
== END 2020-08-23 14:26 | disposition home or self-care (01) ==
PROVIDERS: Emergency Provider Nurse Practitioner Family; PCP Nurse Practitioner
DX: U07.1 COVID-19 (principal)
CPT/HCPCS: 71046; 87635; 99283; 99284

== ENCOUNTER → 2020-10-16 12:37 | Outpatient (CLI) | payer OTHER, MEDICAID, SELFPAY ==
[2020-10-16 12:59] LABS: Hemoglobin 15.4 g/dL (12.0-16.0); Mean Corpuscular HGB Conc 34.1 % (30-36); Mean Corpuscular Hemoglobin 31.3 PG (26-34); Mean Corpuscular Volume 91.6 fL (80-100); Platelet Count 194 X10^3/uL (150-400); Red Blood Cell Count 4.91 X10^6/uL (4.0-5.2); Red Cell Distribution Width 13.8 % (11.6-14.8); White Blood Cell Count 10.5 X10^3/uL (4.5-11.0)
[2020-10-16 13:11] LABS: Hemoglobin A1C% w Est Avg Glu 4.9 % (4.0-6.0)
[2020-10-16 13:14] LABS: Alanine Aminotransferase 17 IU/L (<35); Albumin 4.3 g/dL (3.5-5.0); Albumin Globulin Ratio 1.7 (1.0-2.8); Alkaline Phosphatase 47 U/L (38-126); Aspartate Aminotransferase 24 IU/L (14-36); BUN Creatinine Ratio 33.3 (6-22); Bilirubin Total 0.7 mg/dL (0.2-1.3); Blood Urea Nitrogen 17 mg/dL (7-17); Calcium 8.7 mg/dL (8.4-10.2); Carbon Dioxide 27 mmol/L (22-32); Chloride 105 mmol/L (98-107); Cholesterol 166 mg/dL (140-199); Estimated Glomerular Filt Rate > 60.0 mL/min (>60); Globulin 2.6 g/dL (1.7-4.1); Glucose 102 mg/dL (70-100); HDL Cholesterol 58 mg/dL (40-60); HEMOLYSIS < 15 (0-50); LDL Cholesterol Calculated 96 mg/dL (<100); Potassium 4.1 mmol/L (3.4-5.1); Sodium 136 mmol/L (137-145); Total Protein 6.9 g/dL (6.3-8.2); Triglycerides 59 mg/dL (35-150)
[2020-10-16 13:31] LABS: Free T4, Direct Thyroxine 0.87 ng/dL (0.78-2.19)
== END ==
PROVIDERS: PCP Nurse Practitioner; Referring Provider Nurse Practitioner; Visit Provider Nurse Practitioner
DX: F32.9 Major depressive disorder, single episode, unspecified (principal); F41.9 Anxiety disorder, unspecified; R25.2 Cramp and spasm; Z00.00 Encounter for general adult medical examination without abnormal findings; E66.9 Obesity, unspecified
CPT/HCPCS: 36415; 80053; 80061; 83036; 83735; 84439; 84443; 84481; 85027

== ENCOUNTER → 2020-10-27 14:46 | Outpatient (CLI) | payer OTHER, MEDICAID, SELFPAY ==
--- NOTE | 2020-10-27 14:49 | DI.RAD.S_ITS ---
PROCEDURE: XR CHEST 2V INDICATIONS: Chest Pain TECHNIQUE: 2 views of the chest were acquired. COMPARISON: [facility], , XR CHEST 2V, 08/23/2020, 11:54. FINDINGS: Surgical changes and devices: Surgical clips in the upper abdomen. Lungs and pleura: Lungs are clear. No pleural effusions or pneumothorax. Mediastinum: Mediastinal contours are normal. Heart size is normal. Bones and chest wall: No suspicious bony abnormalities. Soft tissues appear unremarkable. IMPRESSION: No evidence of an acute cardiopulmonary abnormality. Dictated by: Chucho Laboy D.O. on 10/27/2020 at 13:56 Approved by: Chucho Laboy D.O. on 10/27/2020 at 13:57
[2020-10-27 15:35] LABS: Add Manual Diff / Slide Review NO; Basophils Absolute Auto 100 /uL (0-100); Basophils Percent Auto 0.5 % (0-2); Eosinophils Absolute Auto 300 /uL (0-450); Eosinophils Percent Auto 2.9 % (2-4); Hematocrit 43.5 % (36-46); Hemoglobin 15.2 g/dL (12.0-16.0); Lymphocytes Absolute Auto 1900 /uL (1100-4500); Lymphocytes Percent Auto 18.4 % (25-40); Mean Corpuscular Hemoglobin 31.8 PG (26-34); Mean Corpuscular Volume 90.8 fL (80-100); Monocytes Absolute Auto 900 /uL (0-900); Monocytes Percent Auto 8.2 % (3-14); Neutrophils Absolute Auto 7200 /uL (1500-7000); Platelet Count 217 X10^3/uL (150-400); Red Blood Cell Count 4.79 X10^6/uL (4.0-5.2); Red Cell Distribution Width 13.9 % (11.6-14.8); White Blood Cell Count 10.4 X10^3/uL (4.5-11.0)
[2020-10-27 15:42] LABS: Alanine Aminotransferase 18 IU/L (<35); Albumin 4.3 g/dL (3.5-5.0); Albumin Globulin Ratio 1.5 (1.0-2.8); Alkaline Phosphatase 59 U/L (38-126); Aspartate Aminotransferase 25 IU/L (14-36); BUN Creatinine Ratio 27.7 (6-22); Bilirubin Total 0.5 mg/dL (0.2-1.3); Blood Urea Nitrogen 13 mg/dL (7-17); Calcium 9.3 mg/dL (8.4-10.2); Carbon Dioxide 24 mmol/L (22-32); Chloride 107 mmol/L (98-107); Estimated Glomerular Filt Rate > 60.0 mL/min (>60); Globulin 2.8 g/dL (1.7-4.1); Glucose 97 mg/dL (70-100); HEMOLYSIS 20 (0-50); Lipase 173 U/L (23-300); Potassium 4.1 mmol/L (3.4-5.1); Sodium 138 mmol/L (137-145); Total Protein 7.1 g/dL (6.3-8.2)
[2020-10-27 15:54] LABS: Troponin I < 0.012 ng/mL (0.01-0.034)
== END ==
PROVIDERS: PCP Nurse Practitioner; Referring Provider Nurse Practitioner; Visit Provider Nurse Practitioner
DX: R07.9 Chest pain, unspecified (principal)
CPT/HCPCS: 36415; 71046; 80053; 83690; 84484; 85025

== ENCOUNTER 2023-11-04 19:14 | Emergency (ER) | payer SELFPAY ==
[2023-11-04 19:20] VITALS: BP 149/82; PULSE 86; RESP 56; TEMP 36.6; O2SAT 97; BMI 38.6
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
[2023-11-04] MEDS: TET,DIPH,PERTUSS(ACELL),VAC/PF 0.5 ML SYRINGE IM (21:53)
[2023-11-04] MEDS: BACITRACIN OINT 0.9 GM PCKT 1 APPLIC TOP (21:56)
[2023-11-04 22:05] VITALS: BP 127/67; PULSE 51; RESP 16; TEMP 36.9; O2SAT 99
== END 2023-11-04 22:08 | disposition home or self-care (01) ==
PROVIDERS: Emergency Provider Emergency Medicine; PCP Nurse Practitioner
DX: S51.812A Laceration without foreign body of left forearm, initial encounter (principal); W45.8XXA Other foreign body or object entering through skin, initial encounter; Y93.89 Activity, other specified
CPT/HCPCS: 12001; 73090; 99283; 99284; 90715

== ENCOUNTER 2024-06-01 23:30 | Emergency (ER) | payer SELFPAY ==
[2024-06-01 23:44] VITALS: BP 119/81; PULSE 85; RESP 18; TEMP 36.9; O2SAT 97; BMI 41.1
--- NOTE | 2024-06-02 00:33 | ED_ITS ---
HPI - Seizure General Chief Complaint: Seizure Stated Complaint: thinks she had a seizure when she was sleeping Time Seen by Provider: 06/02/24 00:03 Source: patient Mode of arrival: Ambulatory Limitations: no limitations History of Present Illness HPI Narrative: Patient 38-year-old healthy female presenting today with possible seizure. She reports that her roommate saw her shaking uncontrollably while she was sleeping she was drooling. He is familiar with seizures his sister had them. He older on her side. She did bite her tongue bilaterally. She also had some urinary incontinence. She reports never had a seizure. She does not drink alcohol except maybe once a week. She denies any new medications she does not take any benzodiazepine. She reports that she has been sleeping and eating normally. However the last 2 days she has not felt well she has been mostly in bed. She has not taken any medication for including [id number]. She feels little nauseous mild headache but not the worst headache of her life. She thinks maybe she was little confused when she woke up but now is overall feeling better Related Data Home Medications Medication Instructions Recorded Confirmed levonorgestrel 21 mcg/24 hours (8 intrauterine 12/27/19 10/27/20 yrs) 52 mg intrauterine device (Mirena) multivitamin 1 cap PO DAILY 12/27/19 10/27/20 vitamin B complex PO 12/27/19 10/27/20 Previous Rx's Medication Instructions Recorded cyclobenzaprine 10 mg tablet 10 mg PO BEDTIME #30 tabs 08/13/20 albuterol sulfate 90 mcg/actuation 2 puff inhalation Q4-6H PRN 09/05/20 aerosol inhaler (Proventil HFA) shortness of breath or wheezing #18 grams fluticasone propionate 44 1 puff inhalation BID #10.6 grams 09/05/20 mcg/actuation HFA aerosol inhaler inhalational spacing device (Amanuel #1 ea 09/05/20 Aerosol Webster Enhancer spacer) prednisone 50 mg tablet 50 mg PO DAILY cough, wheezing #5 09/05/20 tabs Allergies Allergy/AdvReac Type Severity Reaction Status Date / Time amoxicillin [AMOXICILLIN] Allergy Unknown Verified 10/27/20 14:07 Patient History Medical History (Updated 06/02/24 @ 02:28 by Yael Jacobson DO) Perimenopause Irregular menses Hot flashes Skin rash Acne Allergies OCD (obsessive compulsive disorder) Post traumatic stress disorder (PTSD) Depression Anxiety Migraines ADHD Foot pain Chronic back pain Ankle pain Carpal tunnel syndrome Anemia Painful menstrual periods (~1996) Ovarian cyst Heavy menstrual period (~1996) Family history of lung cancer Family history of heart disease Family history of breast cancer Family history of psychiatric condition Family history of hemochromatosis Family history of high cholesterol Family history of hypertension Family history of diabetes mellitus Tobacco abuse History of OCD (obsessive compulsive disorder) History of anxiety History of depression History of acne History of seasonal allergies History of chronic back pain Abnormal Pap smear of cervix (~2004) Obesity (BMI 30.0-34.9) Asthma Patient denies medical problems Surgical History Anesthesia History of cholecystectomy (~07/29/10) Family History Father Diabetes mellitus Hypertension Hyperlipidemia Mother Mental health problem Hemochromatosis Grandfather Diabetes mellitus History of heart disease OCD (obsessive compulsive disorder) Grandmother Cancer Mental health problem Grandfather History of heart disease Hypertension Hyperlipidemia Grandmother Cancer Family/Other Mental health problem Social History Smoking Status: Current every day smoker Smoking Status: Current every day smoker tobacco type: vaping alcohol intake frequency: 0-2 drinks per day Substance Use Type: marijuana Exam Initial Vital Signs Initial Vital Signs: Vital Signs Temperature 98.4 F 06/01/24 23:44 Pulse Rate 85 06/01/24 23:44 Respiratory Rate 18 06/01/24 23:44 Blood Pressure 119/81 06/01/24 23:44 Pulse Oximetry 97 06/01/24 23:44 Oxygen Delivery Method Room Air 06/01/24 23:44 GENERAL: Alert pleasant 30-year-old female and in no acute distress. HEENT: Head atraumatic,EOMI, pupils reactive, face symmetric, bilateral tongue bites no laceration CARDIOVASCULAR: Regular rate and rhythm without murmurs, rubs or gallops. RESPIRATORY: Breath sounds equal bilaterally, no wheezes rales or rhonchi. ABDOMEN: Soft, nontender. Normoactive bowel sounds all 4 quadrants. No guarding or rebound. EXTREMITIES: Normal range of motion, no clubbing or edema. Neurovascularly intact NEUROLOGICAL: Alert and oriented x4.Normal gait and speech. Cranial nerves II through XII grossly intact. SKIN: Warm, dry, no laceration, no petechiae, no rashes or lesions. Course Orders Ordered: ED Orders 06/02/24 00:30 CBC Auto Diff [Complete Blood Count AUTO DIFF] Stat CMP [Comprehensive Metabolic Panel] Stat Covid-19 + FLU A/B + RSV - PCR Stat ETOH [Ethanol (ETOH)] Stat Lactate (Lactic Acid) Stat Prolactin Stat 06/02/24 01:55 Urine Culture Stat Urine Drug Screen, Rapid Stat Urine Microscopic Stat Discontinued Medications Sodium Chloride (Normal Saline 0.9%) 1,000 mls @ 1,000 mls/hr IV BOLUS ONE Stop: 06/02/24 02:24 Last Infusion: 06/02/24 02:42 Dose: Infused Documented By: Admin: 06/02/24 01:00 Dose: 1,000 mls/hr Documented By: BASILIO Vital Signs Vital signs: Vital Signs - 8 hr 06/01/24 23:44 06/02/24 02:55 Temperature 98.4 F Pulse Rate 85 49 L Respiratory Rate 18 16 Blood Pressure 119/81 136/78 Pulse Oximetry 97 98 Oxygen Delivery Method Room Air Room Air MDM - Seizure Lab Data 06/02/24 00:30 06/02/24 00:30 Labs: Lab Results 06/02/24 06/02/24 Range/Units 00:30 01:55 WBC 17.5 H (4.5-11.0) X10^3/uL RBC 4.50 (4.0-5.2) X10^6/uL Hgb 13.8 (12.0-16.0) g/dL Hct 39.2 (36-46) % MCV 87.2 (80-100) fL MCH 30.8 (26-34) PG MCHC 35.3 (30-36) % RDW 14.1 (11.6-14.8) % Plt Count 222 (150-400) X10^3/uL Neut % (Auto) 84.2 H (50-75) % Lymph % (Auto) 10.3 L (25-40) % [place] % (Auto) 4.6 (3-14) % Eos % (Auto) 0.6 L (2-4) % Baso % (Auto) 0.3 (0-2) % Neut # (Auto) 40946 H (5775-2836) /uL Lymph # (Auto) 1800 (8577-1282) /uL [place] # (Auto) 800 (0-900) /uL Eos # (Auto) 100 (0-450) /uL Baso # (Auto) 100 (0-100) /uL Sodium 135 L (137-145) mmol/L Potassium 3.7 (3.4-5.1) mmol/L Chloride 108 H (98-107) mmol/L Carbon Dioxide 26 (22-32) mmol/L BUN 7 (7-17) mg/dL Creatinine 0.55 (0.52-1.04) mg/dL Estimated GFR > 60 (>60) mL/min BUN/Creatinine Ratio 12.7 (6-22) Glucose 104 H (70-100) mg/dL Lactate 1.0 (0.7-2.1) mmol/L Calcium 8.8 (8.4-10.2) mg/dL Total Bilirubin 0.8 (0.2-1.3) mg/dL AST 21 (14-36) IU/L ALT 16 (<35) IU/L Alkaline Phosphatase 45 (38-126) U/L Total Protein 6.7 (6.3-8.2) g/dL Albumin 4.1 (3.5-5.0) g/dL Globulin 2.6 (1.7-4.1) g/dL Albumin/Globulin Ratio 1.6 (1.0-2.8) Prolactin 16.4 (3.0-18.6) ng/mL Urine RBC None seen (0-5/HPF) Urine WBC 0-1/hpf (0-5/HPF) Ur Squamous Epith Cells 10-30 /hpf H (0-5/HPF) Urine Bacteria Moderate (10-30) H (None) Urine Mucus 1+ H (Negative) Vol Urine Centrifuged 10ml (spun) U Opiates 300ng/mL cut Negative (Negative) Ur Oxycodone Screen Negative (Negative) Urine Methadone Screen Negative (Negative) Ur Barbiturates Screen Negative (Negative) U Tricyclic Antidepress Negative (Negative) Ur Phencyclidine Scrn Negative (Negative) Ur Amphetamines Screen Negative (Negative) U Methamphetamines Scrn Negative (Negative) Ur MDMA Scrn (Ecstasy) Negative (Negative) U Benzodiazepines Scrn Negative (Negative) Urine Cocaine Screen Negative (Negative) U Marijuana (THC) Screen Positive H (Negative) Urine pH Normal (Normal) Urine Specific [place] Normal (Normal) Ethyl Alcohol < 10 ( - 10) mg/dL Ur Creatinine Normal (Normal) SARS-CoV-2 (PCR) Negative (Negative) Influenza A (RT-PCR) Flu a negative (NEGATIVE) Influenza B (RT-PCR) Flu b negative (NEGATIVE) RSV (PCR) Negative (Negative) Point of Care Testing Test Results Negative Urine Dip Bedside Urine Glucose Negative Bedside Urine Bilirubin - Negative Bedside Urine Ketone - Negative Urine Specific [place] 1.020 Bedside Urine Occult Blood - Negative Bedside Urine pH 6.0 Bedside Urine Protein - Negative Bedside Urine Urobilinogen - Negative Bedside Urine Nitrite - Negative Bedside Urine Leukocytes - Negative Esterase MDM Narrative Medical decision making narrative: Patient is a 38-year-old female who presents today with possible seizure. Roommate witnessed her shaking whole-body uncontrolled with loss of urine, she did bite her tongue. She has no prior history of seizures. She denies any change in sleep habits or food no new medications. She does not drink alcohol regularly and she has not been on benzodiazepines. She really does not take any sort medication. Blood work has been reviewed does have leukocytosis of 17.5, sodium 135 potassium 3.7 chloride 108 bicarb 26 BUN 7 creatinine 0.55 glucose 104 lactate 1.0 calcium 8.8 bilirubin 0.8 AST 21 ALT 16 alk-phos 45 prolactin 16.4 Urinalysis negative Viral panel negative Patient signs and symptoms concerning for seizure including urinary incontinence and tongue biting along with shaking uncontrollably and drooling. Blood work is overall reassuring she does have some mild leukocytosis although she has been a little bit ill but she is not septic. She is afebrile not tachycardic. Her exam is otherwise normal she is neurologically intact. Prolactin is also within normal limits Patient does not have PCP. We discussed not driving for 6 months until medically cleared Discharge Plan Departure Patient Disposition: Home Clinical Impression: Seizure Instructions: DI for Seizure (Not Epilepsy/Seizure Disorder) Activity Restrictions/Additional Instructions: NO DRIVING for 6-12 months or until cleared by physician *You have been diagnosed with seizure *What to do: Unclear if you actually had a seizure today. It is very possible. At this time stay hydrated and rest. If you should have a recurrent seizure you will definitely need further testing and a neurology evaluation. *Continue to take medications as directed *Follow up with your primary care provider in 2-3 days or call [phone] *Return to ER if you should have recurrent seizure weakness or any new, worsening or concerning symptoms Prescriptions: No Action cyclobenzaprine 10 mg tablet 10 mg PO BEDTIME Qty: 30 0RF albuterol sulfate [Proventil HFA] 90 mcg/actuation HFA aerosol inhaler 2 puff INHALATION Q4-6H PRN (Reason: shortness of breath or wheezing) Qty: 18 4RF Rx Instructions: Inhale 2 puffs by mouth up to every 4-6 hours as needed for SOB. fluticasone propionate 44 mcg/actuation HFA aerosol inhaler 1 puff INHALATION BID Qty: 10.6 2RF Rx Instructions: administer with spacer twice per day for asthma (DME) Amanuel Aerosol Webster Enhancer Spacer See Rx Instructions .ROUTE .MEDSUPPLY Qty: 1 0RF Rx Instructions: As directed prednisone 50 mg tablet 50 mg PO DAILY Qty: 5 0RF Rx Instructions: Take 1 tab by mouth daily x5 days, with food. Mirena 20 mcg/24 hours (5 yrs) 52 mg intrauterine device intrauterine vitamin B complex PO multivitamin Capsule 1 cap PO DAILY Stand Alone Forms: Patient Portal/API
[2024-06-02 00:42] LABS: Add Manual Diff / Slide Review NO; Basophils Absolute Auto 100 /uL (0-100); Basophils Percent Auto 0.3 % (0-2); Eosinophils Absolute Auto 100 /uL (0-450); Eosinophils Percent Auto 0.6 % (2-4); Hematocrit 39.2 % (36-46); Hemoglobin 13.8 g/dL (12.0-16.0); Lymphocytes Absolute Auto 1800 /uL (1100-4500); Lymphocytes Percent Auto 10.3 % (25-40); Mean Corpuscular HGB Conc 35.3 % (30-36); Mean Corpuscular Hemoglobin 30.8 PG (26-34); Mean Corpuscular Volume 87.2 fL (80-100); Monocytes Absolute Auto 800 /uL (0-900); Monocytes Percent Auto 4.6 % (3-14); Neutrophils Absolute Auto 14800 /uL (1500-7000); Neutrophils Percent Auto 84.2 % (50-75); Platelet Count 222 X10^3/uL (150-400); Red Cell Distribution Width 14.1 % (11.6-14.8); White Blood Cell Count 17.5 X10^3/uL (4.5-11.0)
[2024-06-02 00:48] LABS: HEMOLYSIS < 15 (0-50)
[2024-06-02 00:53] LABS: Ethanol (ETOH) < 10 mg/dL
[2024-06-02 00:54] LABS: Alanine Aminotransferase 16 IU/L (<35); Albumin 4.1 g/dL (3.5-5.0); Albumin Globulin Ratio 1.6 (1.0-2.8); Alkaline Phosphatase 45 U/L (38-126); Aspartate Aminotransferase 21 IU/L (14-36); BUN Creatinine Ratio 12.7 (6-22); Bilirubin Total 0.8 mg/dL (0.2-1.3); Blood Urea Nitrogen 7 mg/dL (7-17); Calcium 8.8 mg/dL (8.4-10.2); Carbon Dioxide 26 mmol/L (22-32); Chloride 108 mmol/L (98-107); Estimated Glomerular Filt Rate > 60 mL/min (>60); Globulin 2.6 g/dL (1.7-4.1); Glucose 104 mg/dL (70-100); Potassium 3.7 mmol/L (3.4-5.1); Sodium 135 mmol/L (137-145); Total Protein 6.7 g/dL (6.3-8.2)
[2024-06-02] MEDS: SODIUM CHLORIDE 0.9% 1,000 ML 1000 ML IV (01:00)
[2024-06-02 01:21] LABS: Prolactin 16.4 ng/mL (3.0-18.6)
[2024-06-02 01:35] LABS: Influenza A - CEPHEID Flu A NEGATIVE (NEGATIVE); Influenza B - CEPHEID Flu B NEGATIVE (NEGATIVE); Respiratory Syncytial Virus Negative (Negative)
[2024-06-02 02:07] LABS: COVID-19 CEPHEID 4-PLEX PCR Negative (Negative)
[2024-06-02 02:32] LABS: Ur Creatinine Normal (Normal); Ur Specific Gravity Normal (Normal); Urine Amphetamines Negative (Negative); Urine Barbiturates Negative (Negative); Urine Benzodiazepines Negative (Negative); Urine Cocaine Negative (Negative); Urine MDMA Negative (Negative); Urine Methadone Negative (Negative); Urine Methamphetamines Negative (Negative); Urine Opiates Negative (Negative); Urine Oxycodone Negative (Negative); Urine Phencyclidine Negative (Negative); Urine THC Positive (Negative); Urine Tricyclic Antidepressant Negative (Negative); Urine pH Normal (Normal)
[2024-06-02 02:33] LABS: Bacteria Urine Moderate (10-30); Urine Volume 10mL (spun)
[2024-06-02 02:34] LABS: Mucus Urine 1+ (Negative); Squamous Epithelial Cell Urine 10-30 /HPF (0-5/HPF)
[2024-06-02 02:35] LABS: RBC Urine None Seen (0-5/HPF); WBC Urine 0-1/HPF (0-5/HPF)
[2024-06-02 02:55] VITALS: BP 136/78; PULSE 49; RESP 16; O2SAT 98
== END 2024-06-02 02:58 | disposition home or self-care (01) ==
PROVIDERS: Emergency Provider Emergency Medicine
DX: R56.9 Unspecified convulsions (principal); R32 Unspecified urinary incontinence
CPT/HCPCS: 0241U; 36415; 80053; 80305; 80320; 81003; 81015; 81025; 83605; 84146; 85025; 87086; 99283; 99284

== ENCOUNTER 2025-04-24 06:35 | Emergency (ER) | payer SELFPAY ==
[2025-04-24] VITALS (12 sets, daily range): BP systolic 102–177; BP diastolic 56–90; PULSE 50–91; RESP 12–23; TEMP 36.8–37; O2SAT 95–98; BMI 41.7
--- NOTE | 2025-04-24 06:50 | EKG_ITS ---
[address] [address] Test Date: 2025-04-24 Pat Name: Jillian Richey Department: [facility] Room: Gender: Female [employer] Manager: : 1985 Requested By: Order Number: [id number] Reading MD: Terry Garcia Measurements Intervals [place] Rate: 90 P: 53 NV: 164 QRS: 43 QRSD: 80 T: 56 QT: 360 QTc: 440 Interpretive Statements Normal sinus rhythm Electronically Signed On 04-24-2025 8:38:58 PDT by Terry Garcia
--- NOTE | 2025-04-24 07:40 | ED_ITS ---
HPI - Seizure General Chief Complaint: Seizure Stated Complaint: confusion Time Seen by Provider: 04/24/25 07:08 Source: patient and EMS Mode of arrival: EMS Limitations: altered mental status History of Present Illness HPI Narrative: 39 woman with no significant medical history, currently working 2 jobs no insurance 1 job is attempting to help her obtain insurance. She has now had a total of at least 5 seizures in the last year. Two of which seemed to be tonic- clonic type seizures 1 of those was last September 29 was approximately 2 weeks ago. The other 3 have been more loss of time, place associated with urinary incontinence but not with tonic-clonic movement, biting her tongue or bruising such as she had noticed with the tonic-clonic type seizures. She has not noticed any obvious triggers but is currently working 2 jobs, significantly stressed. she describes no alcohol or recreational drug use. When asked if she has any sort of aura, she notes that she sometimes has some head fullness and after the episodes we will be fatigued and have a slight headache. She currently does complain of a dull overall headache. She does not have a history of migraine. She has not been having fevers, cough, chills. She states she is sleeping well within the confines of her work schedule. No unexplained weight loss, chest pain abdominal pain, nausea or vomiting. She does seem to have a postictal period after these events, longer with the tonic-clonic seizures. On arrival in the emergency room after seizure work, end of her work shift, today she still is somewhat confused but able to speak in full sentences and cooperate. Related Data Home Medications Medication Instructions Recorded Confirmed levonorgestrel 21 mcg/24 hr (up to intrauterine 12/27/19 10/27/20 8 years) 52 mg intrauterine device (Mirena) multivitamin 1 cap PO DAILY 12/27/19 10/27/20 vitamin B complex PO 12/27/19 10/27/20 Previous Rx's Medication Instructions Recorded cyclobenzaprine 10 mg tablet 10 mg PO BEDTIME #30 tabs 08/13/20 albuterol sulfate 90 mcg/actuation 2 puff inhalation Q4-6H PRN 09/05/20 aerosol inhaler (Proventil HFA) shortness of breath or wheezing #18 grams fluticasone propionate 44 1 puff inhalation BID #10.6 grams 10/08/20 mcg/actuation HFA aerosol inhaler inhalational spacing device (Amanuel #1 ea 09/05/20 Aerosol [place] Enhancer spacer) prednisone 50 mg tablet 50 mg PO DAILY cough, wheezing #5 09/05/20 tabs diazepam 5 mg tablet 5 mg PO BID PRN seizure activity 04/24/25 #30 tabs levetiracetam 750 mg tablet 750 mg PO BID #180 tabs 04/24/25 (Keppra) levetiracetam 750 mg tablet 750 mg PO BID #60 tabs 04/24/25 (Keppra) Allergies Allergy/AdvReac Type Severity Reaction Status Date / Time amoxicillin [AMOXICILLIN] Allergy Unknown Verified 10/27/20 14:07 Review of Systems Review of Systems Narrative: Pertinent positive and negative findings as per HPI Patient History Medical History (Updated 04/24/25 @ 08:38 by Ashley Casper MD) Perimenopause Irregular menses Hot flashes Skin rash Acne Allergies OCD (obsessive compulsive disorder) Post traumatic stress disorder (PTSD) Depression Anxiety Migraines ADHD Foot pain Chronic back pain Ankle pain Carpal tunnel syndrome Anemia Painful menstrual periods (~1996) Ovarian cyst Heavy menstrual period (~1996) Family history of lung cancer Family history of heart disease Family history of breast cancer Family history of psychiatric condition Family history of hemochromatosis Family history of high cholesterol Family history of hypertension Family history of diabetes mellitus Tobacco abuse History of OCD (obsessive compulsive disorder) History of anxiety History of depression History of acne History of seasonal allergies History of chronic back pain Abnormal Pap smear of cervix (~2004) Obesity (BMI 30.0-34.9) Asthma Patient denies medical problems Surgical History Anesthesia History of cholecystectomy (~07/29/10) Family History Father Diabetes mellitus Hypertension Hyperlipidemia Mother Mental health problem Hemochromatosis Grandfather Diabetes mellitus History of heart disease OCD (obsessive compulsive disorder) Grandmother Cancer Mental health problem Grandfather History of heart disease Hypertension Hyperlipidemia Grandmother Cancer Family/Other Mental health problem tobacco type: vaping alcohol intake frequency: 0-2 drinks per day Exam Initial Vital Signs Initial Vital Signs: Vital Signs Temperature 98.2 F 04/24/25 06:42 Pulse Rate 85 04/24/25 06:42 Respiratory Rate 18 04/24/25 06:42 Blood Pressure 177/90 H 04/24/25 06:42 Pulse Oximetry 96 04/24/25 06:42 Oxygen Delivery Method Room Air 04/24/25 06:42 General:Slightly dazed appearing, she is making good eye contact HEENT: Moist mucous membranes, normal sclera with reactive pupils, Neck: no cervical adenopathy Respiratory: Lungs are clear to auscultation, no wheezing no rales no rhonchi. Full and symmetrical air movement Cardiac: Regular rate and rhythm no murmurs no bruits Abdomen: Soft, nontender, no rebound or guarding, no flank pain Skin: Warm and dry, no rashes, no bruising, she did not bite her tongue Neurologic: Grossly neurologically intact with no obvious asymmetries or abnormalities, no hyperreflexia Extremities: No trauma, well perfused Psych: Cooperative, appropriate insight and affect Course Orders Ordered: ED Orders 04/24/25 06:00 Comprehensive Metabolic Panel Stat Magnesium Stat 04/24/25 06:40 EKG-12 Lead Stat 04/24/25 07:57 Consult to TUMBLING MACHINE OPERATOR - [facility] [place] Stat Discontinued Medications Diazepam (Diazepam 5 Mg Tablet) 5 mg PO NOW ONE Stop: 04/24/25 08:54 Last Admin: 04/24/25 09:11 Dose: 5 mg Vital Signs Vital signs: Vital Signs - 8 hr 04/24/25 06:42 04/24/25 06:54 Temperature 98.2 F Pulse Rate 85 91 H Respiratory Rate 18 20 Blood Pressure 177/90 H Pulse Oximetry 96 95 Oxygen Delivery Method Room Air MDM - Seizure Lab Data 04/24/25 06:00 Labs: Lab Results 04/24/25 Range/Units 06:00 Sodium 137 (137-145) mmol/L Potassium 3.9 (3.4-5.1) mmol/L Chloride 103 (98-107) mmol/L Carbon Dioxide 19 L (22-32) mmol/L BUN 12 (7-17) mg/dL Creatinine 0.79 (0.52-1.04) mg/dL Estimated GFR > 60 (>60) mL/min BUN/Creatinine Ratio 15.2 (6-22) Glucose 110 H (70-99) mg/dL Calcium 9.1 (8.4-10.2) mg/dL Magnesium 1.9 (1.6-2.3) mg/dL Total Bilirubin 0.7 (0.2-1.3) mg/dL AST 34 (14-36) IU/L ALT 21 (<35) IU/L Alkaline Phosphatase 81 (38-126) U/L Total Protein 7.4 (6.3-8.2) g/dL Albumin 4.7 (3.5-5.0) g/dL Globulin 2.7 (1.7-4.1) g/dL Albumin/Globulin Ratio 1.7 (1.0-2.8) Point of Care Testing Test Results Negative Glucose POC 120 MDM Narrative Medical decision making narrative: CC: seizure Complicating co-morbidities: none Data collected from: patient Social determinants of health that may influence the patients condition: no insurance and difficulty paying for medications/accessing healthcare Medical records reviewed: [place] records from October 15, 2024 for seizure do indicate that she had a head CT at that time that was unremarkable. ER note indicate that she was started on Keppra, she did not have insurance and was not able to fill that prescription nor was she able to follow up with neurology referral Differential considered: epileptic seizure, pseudo seizure, electrolyte abnormality, recreational drug use, tumor or mass Exam documented above, pertinent findings include: patient was slightly postictal but improving significantly during our exam. Complains of slight headache, not hyperreflexic and otherwise unremarkable Lab Test results independently reviewed as above. Pertinent findings: urine test is negative CBC shows leukocytosis 17.5 consistent with demargination after a seizure chemistries are unremarkable Imaging studies independently reviewed: last CT scan of the head was October 15, 2024, it was unremarkable. I do not believe additional imaging studies are warranted today Consultations: Treatments: Re-evaluations: Discussion: Discharge Plan Departure Patient Disposition: Home Clinical Impression: Seizure Instructions: DI for Seizure Disorder -- Adult, DI for Seizure (Not Epilepsy/Seizure Disorder) Activity Restrictions/Additional Instructions: thank you for coming in today, I am sorry that you have had another seizure this morning. I have given you printed information on epileptic seizures as well as nonepileptic seizures. At some point you do need to see a neurologist, you need an EEG, an electrical picture of your brain waves, to determine which type of seizures you have. In the meantime, I do believe that being on low-dose antiseizure medicine called Keppra maybe helpful in preventing further seizures. Please look up [employer] this suggests that you may be able to get the 1st prescription for 2 dollars and 17 dollars a month after that. I am also going to give you a prescription for diazepam. Diazepam is a medication we help to prevent seizures or to stop them once they have started. It is also an antianxiety medication you mentioned that sometimes you have a head fullness sensation before a seizure. This would be an appropriate time to take a diazepam to see if we can prevent a seizure altogether. both the Keppra in a 90 day supply as well as the diazepam has been electronically transmitted to [employer]. If for some reason the [employer] we will not cover a 90 day supply, I have given you a written prescription for the same medication with a 30 day supply. You do not need to fill both of these. I have asked our social and human services assistant to talk with you to see if we can help with getting you insurance so that you can access primary and Neurology care. If you find that you are worse or have new problems, please feel free to return to the ER Prescriptions: New levetiracetam [Keppra] 750 mg tablet 750 mg PO BID Qty: 180 3RF levetiracetam [Keppra] 750 mg tablet 750 mg PO BID Qty: 60 12RF diazepam 5 mg tablet 5 mg PO BID PRN (Reason: seizure activity) Qty: 30 1RF No Action cyclobenzaprine 10 mg tablet 10 mg PO BEDTIME Qty: 30 0RF albuterol sulfate [Proventil HFA] 90 mcg/actuation HFA aerosol inhaler 2 puff INHALATION Q4-6H PRN (Reason: shortness of breath or wheezing) Qty: 18 4RF Rx Instructions: Inhale 2 puffs by mouth up to every 4-6 hours as needed for SOB. fluticasone propionate 44 mcg/actuation HFA aerosol inhaler 1 puff INHALATION BID Qty: 10.6 2RF Rx Instructions: administer with spacer twice per day for asthma (DME) Amanuel Aerosol [place] Enhancer Spacer See Rx Instructions .ROUTE .MEDSUPPLY Qty: 1 0RF Rx Instructions: As directed prednisone 50 mg tablet 50 mg PO DAILY Qty: 5 0RF Rx Instructions: Take 1 tab by mouth daily x5 days, with food. Mirena 20 mcg/24 hours (5 yrs) 52 mg intrauterine device intrauterine vitamin B complex PO multivitamin Capsule 1 cap PO DAILY Stand Alone Forms: Patient Portal/API/Survey
[2025-04-24 08:13] LABS: Alanine Aminotransferase 21 IU/L (<35); Albumin 4.7 g/dL (3.5-5.0); Albumin Globulin Ratio 1.7 (1.0-2.8); Alkaline Phosphatase 81 U/L (38-126); Aspartate Aminotransferase 34 IU/L (14-36); BUN Creatinine Ratio 15.2 (6-22); Bilirubin Total 0.7 mg/dL (0.2-1.3); Blood Urea Nitrogen 12 mg/dL (7-17); Calcium 9.1 mg/dL (8.4-10.2); Carbon Dioxide 19 mmol/L (22-32); Chloride 103 mmol/L (98-107); Estimated Glomerular Filt Rate > 60 mL/min (>60); Globulin 2.7 g/dL (1.7-4.1); Glucose 110 mg/dL (70-99); HEMOLYSIS < 15 (0-50); Magnesium 1.9 mg/dL (1.6-2.3); Potassium 3.9 mmol/L (3.4-5.1); Sodium 137 mmol/L (137-145); Total Protein 7.4 g/dL (6.3-8.2)
[2025-04-24] MEDS: diazePAM 5 MG TABLET PO (09:11)
== END 2025-04-24 10:16 | disposition home or self-care (01) ==
PROVIDERS: Emergency Provider Emergency Medicine
DX: G40.909 Epilepsy, unspecified, not intractable, without status epilepticus (principal)
CPT/HCPCS: 80053; 81025; 83735; 93005; 99283; 99284